=== PATIENT | female | born 1965 | race Caucasian/White ===

== ENCOUNTER 2016-12-11 18:51 | Emergency (ER) | payer OTHER ==
[~2016-12-11] VITALS: Ht 160 cm; Wt 68.6 kg
[~2016-12-11 18:51] MED LIST: AMBIEN10 MG PO; AMBIEN5 M1 PO; AMBIEN5 MG PO; AMITRIPTYLINE H10 MG PO; AMLODIPINE BESYL5 MG PO; ASCORBIC ACID500 M3 PO; ATENOLOL50 MG PO; BACTRIM,SEPT1 TABLET PO; BUPROPION HCL75 MG PO; BUSPAR10 MG PO; BUTALB-APAP-CA1 EACH PO; CHANTIX0.5 MG PO; CHANTIX1 EACH PO; CLARITIN,ALAVAR10 MG PO; CLARITIN10 MG PO; COLACE100 MG PO; CYANOCOBALAM1000 MCG PO; CYMBALTA20 MG PO; CYMBALTA30 MG PO; Colace PO; DIAZEPAM2 MG PO; DIAZEPAM5 MG PO; DICYCLOMINE HCL10 MG PO; DOXEPIN HCL10 MG PO; DOXYCYCLINE HY100 M3 PO; ELAVIL10 MG PO; ENDOCET 5-3251 EACH PO; ESCITALOPRAM OX20 MG PO; FERROUS SULFAT325 MG PO; FLEXERIL10 MG PO; FLEXERIL5 MG PO; FLOMAX0.4 MG PO; FLONASE16 G1 BOTH NARES; FLONASE16 GM NS; FLORANEX GRANU1 EACH PO; FLUCONAZOLE100 MG PO; FLUTICASONE PRO16 GM BOTH NARES; GABAPENTIN300 MG PO; GABAPENTIN400 MG PO; HYDROCHLOROTHIA25 MG PO; IRON325 MG PO; KADIAN30 MG PO; LASIX20 MG PO; LEVAQUIN500 MG PO; LEVAQUIN750 MG PO; LIDODERM 5% P1 PATCH TD; LISINOPRIL20 MG PO; LISINOPRIL40 MG PO; LORTAB 5-325 M1 EACH PO; LYRICA100 MG PO; MELOXICAM7.5 MG PO; METHADONE10 MG PO; METHOCARBAMOL750 MG PO; METOPROLOL TART25 MG PO; MOBIC15 MG PO; MORPHINE SULFAT15 M1; MORPHINE SULFAT15 M1 PO; MORPHINE SULFAT30 M2 PO; NASACORT10.8 ML BOTH NARES; NEURONTIN300 MG PO; NORCO 5/3251 TABLET PO; OMEPRAZOLE20 M2 PO; OMEPRAZOLE20 MG PO; OXAYDO5 MG PO; OXYCODONE HCL10 MG PO; OXYCODONE HCL5 MG PO; PANTOPRAZOLE SO40 MG PO; PERCOCET 10/1 TABLET PO; PERCOCET 7.5-31 EACH PO; PHENERGAN-CODE120 ML PO; PLAVIX75 MG PO; PRAVACHOL20 MG PO; PRAVASTATIN SOD20 MG PO; PREDNISONE10 MG PO; PREDNISONE20 MG PO; PROAIR HFA8.5 GM IH; PROMETHAZINE HC25 M1 PO; PROPRANOLOL HC120 MG PO; PROVENTIL HFA6.7 GM IH; RANITIDINE HCL300 MG PO; SANTYL30 GM TP; SEROQUEL50 MG PO; TIZANIDINE HCL4 MG PO; TORADOL10 MG PO; TRAZODONE HCL50 MG PO; ULTRAM50 MG PO; VENTOLIN HFA18 GM IH; WELLBUTRIN75 MG PO; XANAX0.5 MG PO; XANAX1 MG PO; ZESTRIL,PRINIVI20 MG PO; ZESTRIL,PRINIVI40 MG PO; ZITHROMAX Z-PA250 MG PO; ZOFRAN4 MG PO; ZOLPIDEM TARTRA10 MG PO; ZYRTEC10 M2 PO
[2016-12-11 19:34] LABS: HEMATOCRIT 35.7 % (36.0-46.0); MCH 27.1 PG (29.0-34.0); MCHC 31.1 G/DL (30.0-36.0); MCV 87.1 FL (83-99); MEAN PLAT.VOLUME 12.2 uM^3 (9.5-12.4); PLATELET COUNT 225 K/uL (156-360); RBC DIS.WIDTH-CV 13.6 % (11.8-14.6); RBC DIS.WIDTH-SD 43.5 % (39-53); WHITE BLOOD COUNT 7.4 K/uL (4.1-10.2)
[2016-12-11 19:44] LABS: CHLORIDE 105 mEq/L (99-109); POTASSIUM 3.9 mEq/L (3.7-5.4); SODIUM 142 mEq/L (136-147)
[2016-12-11 19:46] LABS: GLUCOSE 119 mg/dL (70-99)
[2016-12-11 19:47] LABS: ANION GAP 11 MEQ/L (2-14)
[2016-12-11 19:50] LABS: GFR ESTIMATE (CALCULATED) > 59 mL/min/
[2016-12-11 19:51] LABS: UREA NITROGEN (BUN) 13 mg/dL (9-23)
[2016-12-11 21:07] LABS: ADD MIUA? YES; BILIRUBIN MODERATE; BLOOD NEGATIVE; COLOR AMBER ((YELLOW)); GLUCOSE (STRIP) NEGATIVE; KETONES NEGATIVE; LEUKOCYTES TRACE; NITRITE NEGATIVE; PROTEIN (STRIP) 30; SPECIFIC GRAVITY 1.029 (1.000-1.030)
[2016-12-11 21:39] LABS: BACTERIA NONE SEEN /HPF; EPITHELIAL CELLS 2+ /HPF; HYALINE CASTS 0-5 /LPF; MUCUS 1+ /LPF; RED BLOOD CELLS 0-5 /HPF (0-5); WHITE BLOOD CELLS 20-30 /HPF (0-5)
[2016-12-11 21:48] LABS: ICTOTEST NEGATIVE
[2016-12-11 21:51] LABS: TOTAL BILIRUBIN 0.4 mg/dL (0.0-1.0)
[2016-12-11 21:52] LABS: ALKALINE PHOSPHATASE 52 IU/L (3-129)
[2016-12-11 21:54] LABS: DIRECT BILIRUBIN 0.1 mg/dL (0.0-0.3)
[2016-12-11] MEDS ORDERED: AUGMENTIN875 MG PO (22:47)
[2016-12-11 22:55] VITALS: BP 132/64
== END 2016-12-11 23:05 | disposition home or self-care (01) ==
LOC: EME 18:51
PROVIDERS: Physician Assistant
DX: J18.9 Pneumonia, unspecified organism (principal); J98.01 Acute bronchospasm; R09.02 Hypoxemia; F17.200 Nicotine dependence, unspecified, uncomplicated; Z88.6 Allergy status to analgesic agent; Z88.8 Allergy status to other drugs, medicaments and biological substances; J45.909 Unspecified asthma, uncomplicated; J44.9 Chronic obstructive pulmonary disease, unspecified; E78.5 Hyperlipidemia, unspecified; I10 Essential (primary) hypertension; Z87.442 Personal history of urinary calculi; K21.9 Gastro-esophageal reflux disease without esophagitis; Z87.01 Personal history of pneumonia (recurrent)
CPT/HCPCS: 71020; 80048; 80076; 81003; 85027; 93005; 94640; 99281; 99285; J7030

== ENCOUNTER 2017-02-13 20:14 | Inpatient (IN) | payer OTHER ==
[~2017-02-13] VITALS: Ht 160 cm; Wt 70.8 kg
[~2017-02-13 20:14] MED LIST changes: +AUGMENTIN875 MG PO
[2017-02-13 20:49] LABS: HEMATOCRIT 57.7 % (36.0-46.0); MCH 27.8 PG (29.0-34.0); MCHC 32.8 G/DL (30.0-36.0); MCV 84.9 FL (83-99); RBC DIS.WIDTH-SD 45.2 % (39-53); WHITE BLOOD COUNT 24.6 K/uL (4.1-10.2)
[2017-02-13 21:42] LABS: TROP-I INTERPRETATION NEGATIVE; TROPONIN-I 0.18 ng/mL (0.0-0.30)
[2017-02-13 21:54] LABS: CHLORIDE 103 mEq/L (99-109); SODIUM 140 mEq/L (136-147)
[2017-02-13 21:56] LABS: GLUCOSE 274 mg/dL (70-99)
[2017-02-13 21:57] LABS: INTER. NORMALIZED RATIO 1.1; PROTHROMBIN TIME 11.3 (9.2-11.2); PTT 23.7 (25-32)
[2017-02-13 21:57] LABS: ANION GAP 21 MEQ/L (2-14)
[2017-02-13 21:58] LABS: HEMATOLOGY COMMENT 1 SN; MEAN PLAT.VOLUME 12.2 uM^3 (9.5-12.4); PLAT.SUFFICIENCY ADEQUATE; PLATELET COUNT 194 K/uL (156-360)
[2017-02-13 21:58] LABS: TOTAL BILIRUBIN 0.5 mg/dL (0.0-1.0)
[2017-02-13 21:59] LABS: SERUM ETHYL ALCOHOL < 10 mg/dL
[2017-02-13 22:00] LABS: GFR ESTIMATE (CALCULATED) 55 mL/min/
[2017-02-13 22:01] LABS: ALKALINE PHOSPHATASE 86 IU/L (3-129)
[2017-02-13 22:02] LABS: UREA NITROGEN (BUN) 19 mg/dL (9-23)
[2017-02-13 22:03] LABS: ADD MIUA? YES; BILIRUBIN NEGATIVE; BLOOD SMALL; COLOR AMBER ((YELLOW)); GLUCOSE (STRIP) >=500; KETONES NEGATIVE; LEUKOCYTES NEGATIVE; NITRITE NEGATIVE; PROTEIN (STRIP) >=500; SPECIFIC GRAVITY 1.038 (1.000-1.030); UROBILINOGEN 0.2 MG/DL (0.2-1.0)
[2017-02-13 22:03] LABS: SALICYLATE < 5.0 MG/DL (15-30)
[2017-02-13 22:04] LABS: CREATINE KINASE 162 IU/L (1-294)
[2017-02-13 22:23] LABS: ADD MEDTOX COMMENT Y; AMPHETAMINE NEGATIVE (500 ng/mL); BARBITURATES NEGATIVE (200 ng/mL); BENZODIAZEPINES PRESUMPTIVE POSITIVE (150 ng/mL); COCAINE NEGATIVE (150 ng/mL); INTERNAL CONTROLS VALID? YES; METHADONE NEGATIVE (200 ng/mL); METHAMPHETAMINE NEGATIVE (500 ng/mL); OPIATES (MORPHINE) PRESUMPTIVE POSITIVE (100 ng/mL); OXYCODONE NEGATIVE (100 ng/mL); PHENCYCLIDINE NEGATIVE (25 ng/mL); PROPOXYPHENE NEGATIVE (300 ng/mL); THC CANNABINOIDS NEGATIVE (50 ng/mL); TRICYCLIC ANTIDEPRESSANTS NEGATIVE (300 ng/mL)
[2017-02-13 22:37] LABS: RED BLOOD CELLS 0-5 /HPF (0-5)
[2017-02-13 22:38] LABS: AMORPHOUS URATES CRYSTALS 3+; BACTERIA 1+ /HPF; EPITHELIAL CELLS NONE SEEN /HPF; MUCUS NONE SEEN /LPF; UCUL ADDED? NO
[2017-02-13 22:59] LABS: BENZODIAZEPINES, URINE SCREEN POSITIVE (200 ng/mL)
[2017-02-14] VITALS (12 sets, daily range): BP systolic 140–184; BP diastolic 84–108
[2017-02-14 04:12] LABS: CREATINE KINASE 120 IU/L (1-294); TOTAL CK 120 IU/L (1-294)
[2017-02-14 09:19] LABS: EOSINOPHIL (%) 0 % (0-5); HEMATOCRIT 53.6 % (36.0-46.0); IMMATURE GRANULOCYTE (%) 0.9 % (0.0-0.7); IMMATURE GRANULOCYTE COUNT 0.3 K/uL; INSTRUMENT ABS NEUTROPHIL CT 23.1 K/uL; MCH 27.7 PG (29.0-34.0); MCV 83.8 FL (83-99); MEAN PLAT.VOLUME 12.6 uM^3 (9.5-12.4); MONOCYTE (%) 6.3 % (3-12); MONOCYTE COUNT 1.7 K/uL (0-0.8); NEUTROPHIL (%) 85.5 % (45-76); NEUTROPHIL COUNT 23.1 K/uL (1.8-6.4); RBC DIS.WIDTH-SD 45.2 % (39-53); WHITE BLOOD COUNT 27.1 K/uL (4.1-10.2)
[2017-02-14 09:23] LABS: PLATELET COUNT 281 K/uL (156-360)
[2017-02-14 09:36] LABS: CHLORIDE 110 mEq/L (99-109); SODIUM 140 mEq/L (136-147)
[2017-02-14 09:38] LABS: GLUCOSE 184 mg/dL (70-99)
[2017-02-14 09:39] LABS: ANION GAP 16 MEQ/L (2-14)
[2017-02-14 09:41] LABS: GFR ESTIMATE (CALCULATED) > 59 mL/min/
[2017-02-14 09:42] LABS: UREA NITROGEN (BUN) 26 mg/dL (9-23)
[2017-02-14 10:14] LABS: TROP-I INTERPRETATION POSITIVE; TROPONIN-I 0.69 ng/mL (0.0-0.30)
[2017-02-14 17:27] LABS: TROP-I INTERPRETATION POSITIVE; TROPONIN-I 0.92 ng/mL (0.0-0.30)
[2017-02-14 22:29] LABS: TROP-I INTERPRETATION POSITIVE; TROPONIN-I 0.81 ng/mL (0.0-0.30)
[2017-02-15 02:06] VITALS: BP 138/88
[2017-02-15 03:00] VITALS: BP 151/84
[2017-02-15 08:43] VITALS: BP 135/77
[2017-02-15 09:30] LABS: ANION GAP 10 MEQ/L (2-14); CHLORIDE 101 MEQ/L (99-109); SAMPLE HEMOLYSIS CHECK 0; SAMPLE ICTERIC CHECK 0; SAMPLE LIPEMIA CHECK 0; SODIUM 136 MEQ/L (136-147)
[2017-02-15 09:33] LABS: POTASSIUM 2.8 MEQ/L (3.7-5.4)
[2017-02-15 09:35] LABS: GFR ESTIMATE (CALCULATED) > 59 mL/min/; UREA NITROGEN (BUN) 18 mg/dL (9-23)
[2017-02-15 09:37] LABS: GLUCOSE 117 mg/dL (70-99)
[2017-02-15 09:57] LABS: BASOPHIL COUNT 0.1 K/uL (0-0.1); EOSINOPHIL (%) 0 % (0-5); HEMATOCRIT 41.6 % (36.0-46.0); IMMATURE GRANULOCYTE (%) 0.6 % (0.0-0.7); IMMATURE GRANULOCYTE COUNT 0.1 K/uL; INSTRUMENT ABS NEUTROPHIL CT 18.6 K/uL; MCH 28.5 PG (29.0-34.0); MCHC 34.1 G/DL (30.0-36.0); MCV 83.5 FL (83-99); MONOCYTE (%) 6.5 % (3-12); MONOCYTE COUNT 1.5 K/uL (0-0.8); NEUTROPHIL (%) 79.6 % (45-76); NEUTROPHIL COUNT 18.6 K/uL (1.8-6.4); RBC DIS.WIDTH-CV 15.6 % (11.8-14.6); RBC DIS.WIDTH-SD 46.9 % (39-53); RED BLOOD COUNT 4.98 M/uL (3.80-5.20); WHITE BLOOD COUNT 23.3 K/uL (4.1-10.2)
[2017-02-15 10:46] LABS: MEAN PLAT.VOLUME 12.7 uM^3 (9.5-12.4); PLAT.SUFFICIENCY ADEQUATE
[2017-02-15 10:49] LABS: PLATELET COUNT 184 K/uL (156-360)
[2017-02-15 11:50] VITALS: BP 138/63
[2017-02-15 15:12] VITALS: BP 130/73
[2017-02-15 20:30] VITALS: BP 157/75
[2017-02-15 20:39] LABS: C DIFF TOXIN NEGATIVE (NEGATIVE)
[2017-02-15 20:48] LABS: PROBE CHECK PASS; SPECIMEN PROCESSING CONTROL PASS
[2017-02-16] VITALS (7 sets, daily range): BP systolic 137–172; BP diastolic 62–82
[2017-02-16 06:34] LABS: HEMATOCRIT 34.2 % (36.0-46.0); MCH 28.6 PG (29.0-34.0); MCHC 33.9 G/DL (30.0-36.0); MCV 84.4 FL (83-99); MEAN PLAT.VOLUME 12.7 uM^3 (9.5-12.4); PLATELET COUNT 141 K/uL (156-360); RBC DIS.WIDTH-CV 15.4 % (11.8-14.6); RBC DIS.WIDTH-SD 47.1 % (39-53); RED BLOOD COUNT 4.05 M/uL (3.80-5.20)
[2017-02-16 06:35] LABS: EOSINOPHIL (%) 0.1 % (0-5); IMMATURE GRANULOCYTE (%) 0.5 % (0.0-0.7); IMMATURE GRANULOCYTE COUNT 0.1 K/uL; INSTRUMENT ABS NEUTROPHIL CT 9.3 K/uL; LYMPHOCYTE COUNT 2.7 K/uL (1.0-2.8); MONOCYTE (%) 7.1 % (3-12); MONOCYTE COUNT 0.9 K/uL (0-0.8); NEUTROPHIL (%) 71.1 % (45-76); NEUTROPHIL COUNT 9.3 K/uL (1.8-6.4)
[2017-02-16 06:36] LABS: WHITE BLOOD COUNT 13.1 K/uL (4.1-10.2)
[2017-02-16 06:45] LABS: ANION GAP 9 MEQ/L (2-14); CHLORIDE 106 MEQ/L (99-109); GFR ESTIMATE (CALCULATED) > 59 mL/min/; GLUCOSE 93 mg/dL (70-99); HDL CHOLESTEROL 37 MG/DL (Desirable>=50); LDL CHOLESTEROL 104 mg/dL (Desirable<100); MAGNESIUM 1.9 mg/dl (1.3-2.7); NON-HDL CHOLESTEROL 150 mg/dL (Desirable<160); POTASSIUM 2.9 MEQ/L (3.7-5.4); SAMPLE HEMOLYSIS CHECK 0; SAMPLE ICTERIC CHECK 0; SAMPLE LIPEMIA CHECK 0; SODIUM 139 MEQ/L (136-147); TOTAL CHOLESTEROL 187 mg/dL (Desirable<200); TRIGLYCERIDES 231 MG/DL (Normal: <150); UREA NITROGEN (BUN) 10 mg/dL (9-23)
[2017-02-16 07:57] LABS: Estimated Average Glucose 111 mg/dL (70-123); HEMOGLOBIN A1c (GLYCOHEMOGLOB) 5.5 % HGB (Below 5.7)
[2017-02-17 04:26] VITALS: BP 180/81
[2017-02-17 07:35] LABS: ALKALINE PHOSPHATASE 37 IU/L (3-129); ANION GAP 10 MEQ/L (2-14); CHLORIDE 105 MEQ/L (99-109); GFR ESTIMATE (CALCULATED) > 59 mL/min/; GLUCOSE 94 mg/dL (70-99); SAMPLE HEMOLYSIS CHECK 0; SAMPLE ICTERIC CHECK 0; SAMPLE LIPEMIA CHECK 0; SODIUM 139 MEQ/L (136-147); TOTAL BILIRUBIN 0.7 MG/DL (0.0-1.0); UREA NITROGEN (BUN) 9 mg/dL (9-23)
[2017-02-17 07:46] LABS: EOSINOPHIL (%) 1.1 % (0-5); EOSINOPHIL COUNT 0.1 K/uL (0-0.3); HEMATOCRIT 36.3 % (36.0-46.0); IMMATURE GRANULOCYTE (%) 0.6 % (0.0-0.7); IMMATURE GRANULOCYTE COUNT 0.1 K/uL; INSTRUMENT ABS NEUTROPHIL CT 5.1 K/uL; LYMPHOCYTE COUNT 2.1 K/uL (1.0-2.8); MCH 27.6 PG (29.0-34.0); MCHC 32.2 G/DL (30.0-36.0); MCV 85.6 FL (83-99); MEAN PLAT.VOLUME 12.6 uM^3 (9.5-12.4); MONOCYTE (%) 8.8 % (3-12); MONOCYTE COUNT 0.7 K/uL (0-0.8); NEUTROPHIL (%) 63.2 % (45-76); NEUTROPHIL COUNT 5.1 K/uL (1.8-6.4); PLATELET COUNT 120 K/uL (156-360); RBC DIS.WIDTH-CV 15.1 % (11.8-14.6); RBC DIS.WIDTH-SD 47.5 % (39-53); RED BLOOD COUNT 4.24 M/uL (3.80-5.20)
[2017-02-17 07:51] LABS: WHITE BLOOD COUNT 8.1 K/uL (4.1-10.2)
[2017-02-17 08:05] VITALS: BP 155/71
[2017-02-17] MEDS ORDERED: LOPRESSOR50 MG PO (10:49)
[2017-02-17] MEDS ORDERED: K-DUR20 MEQ PO (10:49)
[2017-02-17] MEDS ORDERED: NIFEDIPINE ER30 MG PO (10:49)
[2017-02-17] MEDS ORDERED: ZESTRIL2.5 MG PO (10:49)
[2017-02-17] MEDS ORDERED: ASPIR-LOW81 MG PO (10:49)
[2017-02-17] MEDS ORDERED: PRAVASTATIN SOD40 MG PO (10:51)
[2017-02-17] MEDS ORDERED: GABAPENTIN400 MG PO (12:29)
[2017-02-17] MEDS ORDERED: MORPHINE SULFAT15 M1 PO (12:29)
[2017-02-17] MEDS ORDERED: LISINOPRIL40 MG PO (12:30)
[2017-02-17] MEDS ORDERED: CLARITIN10 M3 PO (12:30)
[2017-02-17] MEDS ORDERED: ZANTAC300 MG PO (12:30)
[2017-02-17] MEDS ORDERED: ATENOLOL50 MG PO (12:30)
[2017-02-17] MEDS ORDERED: OXYCODONE HCL10 MG PO (12:30)
[2017-02-17] MEDS ORDERED: IRON325 M1 PO (12:31)
[2017-02-17] MEDS ORDERED: NASACORT10.8 ML BOTH NARES (12:31)
[2017-02-17] MEDS ORDERED: TRAZODONE HCL50 MG PO (12:32)
[2017-02-17] MEDS ORDERED: ROPINIROLE HCL0.5 MG PO (12:32)
[2017-02-17] MEDS ORDERED: CHANTIX1 MG PO (12:32)
[2017-02-17 15:13] VITALS: BP 168/76
== END 2017-02-17 16:15 | disposition home health service (06) | DRG 871 ==
LOC: EME → EDBD 20:14 → EME 20:14 → EDOF 21:13 → 5SOUTH 21:13 → 4EAST 21:13 → 5SOUTH 02-16 11:35
PROVIDERS: Emergency Medicine; Hospitalist; Internal Medicine; Internal Medicine Nephrology
PROC: 05H633Z Insertion of Infusion Device into Left Subclavian Vein, Percutaneous Approach (ICD-10-PCS; principal; 2017-02-13)
DX: A41.9 Sepsis, unspecified organism (principal); I67.83 Posterior reversible encephalopathy syndrome; I63.9 Cerebral infarction, unspecified; G93.40 Encephalopathy, unspecified; E87.2 Acidosis; F11.90 Opioid use, unspecified, uncomplicated; I10 Essential (primary) hypertension; E87.6 Hypokalemia; G89.4 Chronic pain syndrome; F31.9 Bipolar disorder, unspecified; E86.0 Dehydration; G93.0 Cerebral cysts; F19.10 Other psychoactive substance abuse, uncomplicated; K21.9 Gastro-esophageal reflux disease without esophagitis; M47.9 Spondylosis, unspecified; F17.210 Nicotine dependence, cigarettes, uncomplicated; Z98.1 Arthrodesis status
CPT/HCPCS: 70450; 70551; 71010; 72141; 72146; 80048; 80053; 80061; 80202; 81003; 82550; 82550 91; 82553; 83036; 83605; 83735; 84484; 84999; 85025; 85027; 85610; 85730; 86900; 86901; 87040; 87086; 87493; 92610 GN; 93005; 93306; 93880; 95819; 97530 GO; 99281; 99285; G0480; J0360; J1650; J2060; J2543; J3370; J3480; J7030; J7050; S0028

== ENCOUNTER 2017-03-16 09:22 | Emergency (ER) | payer OTHER ==
[~2017-03-16] VITALS: Ht 160 cm; Wt 67.7 kg
[~2017-03-16 09:22] MED LIST changes: +ASPIR-LOW81 MG PO; +CHANTIX1 MG PO; +CLARITIN10 M3 PO; +IRON325 M1 PO; +K-DUR20 MEQ PO; +LOPRESSOR50 MG PO; +NIFEDIPINE ER30 MG PO; +PRAVASTATIN SOD40 MG PO; +ROPINIROLE HCL0.5 MG PO; +ZANTAC300 MG PO; +ZESTRIL2.5 MG PO
[2017-03-16 12:57] LABS: BASOPHIL COUNT 0.1 K/uL (0-0.1); EOSINOPHIL (%) 1.5 % (0-5); EOSINOPHIL COUNT 0.1 K/uL (0-0.3); HEMATOCRIT 42.6 % (36.0-46.0); IMMATURE GRANULOCYTE (%) 0.4 % (0.0-0.7); INSTRUMENT ABS NEUTROPHIL CT 4.4 K/uL; LYMPHOCYTE COUNT 2.9 K/uL (1.0-2.8); MCHC 33.1 G/DL (30.0-36.0); MCV 84.5 FL (83-99); MEAN PLAT.VOLUME 12.7 uM^3 (9.5-12.4); MONOCYTE (%) 6.9 % (3-12); MONOCYTE COUNT 0.6 K/uL (0-0.8); NEUTROPHIL (%) 54.2 % (45-76); NEUTROPHIL COUNT 4.4 K/uL (1.8-6.4); PLATELET COUNT 190 K/uL (156-360); RBC DIS.WIDTH-CV 14.2 % (11.8-14.6); RED BLOOD COUNT 5.04 M/uL (3.80-5.20); WHITE BLOOD COUNT 8.1 K/uL (4.1-10.2)
[2017-03-16 13:01] LABS: CHLORIDE 106 mEq/L (99-109); POTASSIUM 4.4 mEq/L (3.7-5.4); SODIUM 141 mEq/L (136-147)
[2017-03-16 13:03] LABS: GLUCOSE 83 mg/dL (70-99)
[2017-03-16 13:05] LABS: ANION GAP 14 MEQ/L (2-14)
[2017-03-16 13:07] LABS: GFR ESTIMATE (CALCULATED) > 59 mL/min/
[2017-03-16 13:08] LABS: UREA NITROGEN (BUN) 10 mg/dL (9-23)
[2017-03-16 17:06] VITALS: BP 171/98
== END 2017-03-16 17:09 | disposition home or self-care (01) ==
LOC: EME 09:22
PROVIDERS: Emergency Medicine
DX: I10 Essential (primary) hypertension (principal); R51 Headache; Z79.891 Long term (current) use of opiate analgesic; Z90.710 Acquired absence of both cervix and uterus; F17.200 Nicotine dependence, unspecified, uncomplicated
CPT/HCPCS: 70450; 80048; 85025; 99281; 99284; J1885; J2765; J3010; J7030

== ENCOUNTER 2017-04-22 15:51 | Emergency (ER) | payer OTHER ==
[~2017-04-22] VITALS: Ht 160 cm; Wt 66.5 kg
[2017-04-22] MEDS ORDERED: ZANTAC300 MG PO (18:13)
[2017-04-22 20:52] VITALS: BP 147/69
== END 2017-04-22 20:56 | disposition home or self-care (01) ==
LOC: EME 15:51
DX: G43.909 Migraine, unspecified, not intractable, without status migrainosus (principal); M79.7 Fibromyalgia; J44.9 Chronic obstructive pulmonary disease, unspecified; E78.5 Hyperlipidemia, unspecified; K21.9 Gastro-esophageal reflux disease without esophagitis; F31.9 Bipolar disorder, unspecified; F17.200 Nicotine dependence, unspecified, uncomplicated
CPT/HCPCS: 99281; 99285; J1885; J2765; J3010; J7030

== ENCOUNTER 2017-06-10 18:48 | Inpatient (IN) | payer OTHER ==
[~2017-06-10] VITALS: Ht 160 cm; Wt 72.8 kg
[~2017-06-10 18:48] MED LIST changes: -CLARITIN10 M3 PO
[2017-06-10 20:25] LABS: HEMATOCRIT 35.9 % (36.0-46.0); MCH 28.5 PG (29.0-34.0); MCHC 32.6 G/DL (30.0-36.0); MCV 87.6 FL (83-99); MEAN PLAT.VOLUME 12.2 uM^3 (9.5-12.4); PLATELET COUNT 208 K/uL (156-360); RBC DIS.WIDTH-CV 13.3 % (11.8-14.6); RBC DIS.WIDTH-SD 43.2 % (39-53); WHITE BLOOD COUNT 12.8 K/uL (4.1-10.2)
[2017-06-10 20:41] LABS: CHLORIDE 105 mEq/L (99-109); POTASSIUM 4.1 mEq/L (3.7-5.4); SODIUM 142 mEq/L (136-147)
[2017-06-10 20:43] LABS: GLUCOSE 145 mg/dL (70-99)
[2017-06-10 20:45] LABS: ANION GAP 14 MEQ/L (2-14); TOTAL BILIRUBIN 1.2 mg/dL (0.0-1.0)
[2017-06-10 20:47] LABS: ALKALINE PHOSPHATASE 103 IU/L (3-129); GFR ESTIMATE (CALCULATED) 55 mL/min/
[2017-06-10 20:48] LABS: UREA NITROGEN (BUN) 46 mg/dL (9-23)
[2017-06-10 20:58] LABS: QUANTITATIVE HCG < 4.0 MIU/ML
[2017-06-10 21:32] LABS: DIRECT BILIRUBIN 0.7 mg/dL (0.0-0.3)
[2017-06-10 22:12] LABS: ADD MIUA? NO; BILIRUBIN SMALL; BLOOD NEGATIVE; COLOR YELLOW ((YELLOW)); GLUCOSE (STRIP) NEGATIVE; KETONES 5; LEUKOCYTES NEGATIVE; NITRITE NEGATIVE; PROTEIN (STRIP) 30; SPECIFIC GRAVITY 1.018 (1.000-1.030); UCUL ADDED? NO
[2017-06-10 22:21] LABS: AMPHETAMINE NEGATIVE (500 ng/mL); BARBITURATES NEGATIVE (200 ng/mL); BENZODIAZEPINES PRESUMPTIVE POSITIVE (150 ng/mL); COCAINE NEGATIVE (150 ng/mL); INTERNAL CONTROLS VALID? YES; METHADONE NEGATIVE (200 ng/mL); METHAMPHETAMINE NEGATIVE (500 ng/mL); OPIATES (MORPHINE) PRESUMPTIVE POSITIVE (100 ng/mL); OXYCODONE PRESUMPTIVE POSITIVE (100 ng/mL); PHENCYCLIDINE NEGATIVE (25 ng/mL); PROPOXYPHENE NEGATIVE (300 ng/mL); THC CANNABINOIDS NEGATIVE (50 ng/mL); TRICYCLIC ANTIDEPRESSANTS PRESUMPTIVE POSITIVE (300 ng/mL)
[2017-06-10 22:22] LABS: ADD MEDTOX COMMENT Y
[2017-06-10 22:23] LABS: ABS NEUTROPHIL COUNT 12.1; ANISOCYTOSIS 1+; BAND NEUTROPHILS 17.5 % (0-8.0); EOSINOPHIL ABS CT 0; INSTRUMENT ABS NEUTROPHIL CT 11.8 K/uL; LYMPHOCYTES 3.5 % (15.0-45.0); SEG.NEUTROPHILS 77.2 % (46.0-76.0)
[2017-06-10 22:53] LABS: BENZODIAZEPINES, URINE SCREEN POSITIVE (200 ng/mL)
[2017-06-10 23:03] LABS: LIPASE < 3 U/L (1.0-51.0)
[2017-06-11] MEDS ORDERED: LISINOPRIL20 MG PO (00:53)
[2017-06-11] MEDS ORDERED: PRAVACHOL20 MG PO (00:53)
[2017-06-11] MEDS ORDERED: APRESOLINE25 MG PO (00:56)
[2017-06-11] MEDS ORDERED: HYOSCYAMINE0.125 M1 SL (00:56)
[2017-06-11] MEDS ORDERED: AMITRIPTYLINE H10 MG PO (00:57)
[2017-06-11] MEDS ORDERED: OMEPRAZOLE20 MG PO (00:57)
[2017-06-11] MEDS ORDERED: DIAZEPAM2 MG PO (00:57)
[2017-06-11 04:41] VITALS: BP 187/108
[2017-06-11 07:12] LABS: ADD MIUA? NO; BILIRUBIN NEGATIVE; BLOOD NEGATIVE; COLOR YELLOW ((YELLOW)); GLUCOSE (STRIP) NEGATIVE; KETONES NEGATIVE; LEUKOCYTES NEGATIVE; NITRITE NEGATIVE; PROTEIN (STRIP) NEGATIVE; SPECIFIC GRAVITY 1.018 (1.000-1.030); UCUL ADDED? NO
[2017-06-11 07:30] VITALS: BP 161/98
[2017-06-11 11:33] VITALS: BP 178/113
[2017-06-11 15:09] VITALS: BP 140/67
[2017-06-11 19:30] VITALS: BP 131/74
[2017-06-12] VITALS (8 sets, daily range): BP systolic 119–189; BP diastolic 60–88
[2017-06-12 07:07] LABS: ANION GAP 10 MEQ/L (2-14); CHLORIDE 108 MEQ/L (99-109); GFR ESTIMATE (CALCULATED) > 59 mL/min/; POTASSIUM 4.1 MEQ/L (3.7-5.4); SAMPLE HEMOLYSIS CHECK 0; SAMPLE ICTERIC CHECK 0; SAMPLE LIPEMIA CHECK 0; SODIUM 141 MEQ/L (136-147); UREA NITROGEN (BUN) 23 mg/dL (9-23)
[2017-06-12 07:14] LABS: GLUCOSE 90 mg/dL (70-99)
[2017-06-12 08:22] LABS: EOSINOPHIL (%) 0.2 % (0-5); HEMATOCRIT 32.4 % (36.0-46.0); IMMATURE GRANULOCYTE (%) 1.3 % (0.0-0.7); IMMATURE GRANULOCYTE COUNT 0.2 K/uL; LYMPHOCYTE COUNT 1.3 K/uL (1.0-2.8); MCHC 31.2 G/DL (30.0-36.0); MEAN PLAT.VOLUME 11.6 uM^3 (9.5-12.4); MONOCYTE (%) 9.6 % (3-12); MONOCYTE COUNT 1.4 K/uL (0-0.8); NEUTROPHIL (%) 80.4 % (45-76); PLATELET COUNT 155 K/uL (156-360); RBC DIS.WIDTH-SD 47.7 % (39-53); RED BLOOD COUNT 3.48 M/uL (3.80-5.20)
[2017-06-12 08:23] LABS: MCV 93.1 FL (83-99)
[2017-06-12 16:55] LABS: INFLUENZA A VIRAL ANTIGEN NEGATIVE; INFLUENZA B VIRAL ANTIGEN NEGATIVE
[2017-06-13 03:32] VITALS: BP 146/83
[2017-06-13 07:45] VITALS: BP 163/80
[2017-06-13 09:39] LABS: HEMATOCRIT 30.3 % (36.0-46.0); MCH 29.6 PG (29.0-34.0); MCHC 32.3 G/DL (30.0-36.0); MCV 91.5 FL (83-99); MEAN PLAT.VOLUME 11.4 uM^3 (9.5-12.4); PLATELET COUNT 134 K/uL (156-360); RBC DIS.WIDTH-CV 13.9 % (11.8-14.6); RBC DIS.WIDTH-SD 47.1 % (39-53); RED BLOOD COUNT 3.31 M/uL (3.80-5.20); WHITE BLOOD COUNT 13.5 K/uL (4.1-10.2)
[2017-06-13 10:15] LABS: INTERNAL CONTROL VALID? YES
[2017-06-13 10:24] LABS: ANION GAP 9 MEQ/L (2-14); CHLORIDE 106 MEQ/L (99-109); GFR ESTIMATE (CALCULATED) > 59 mL/min/; GLUCOSE 108 mg/dL (70-99); SAMPLE HEMOLYSIS CHECK 0; SAMPLE ICTERIC CHECK 0; SAMPLE LIPEMIA CHECK 0; SODIUM 138 MEQ/L (136-147); UREA NITROGEN (BUN) 10 mg/dL (9-23)
[2017-06-13 10:34] LABS: POTASSIUM 3.2 MEQ/L (3.7-5.4)
[2017-06-13 12:10] VITALS: BP 115/56
[2017-06-13 16:45] VITALS: BP 126/64
[2017-06-13 19:57] VITALS: BP 113/59
[2017-06-14 00:13] VITALS: BP 136/72
[2017-06-14 03:32] VITALS: BP 121/65
[2017-06-14 04:17] LABS: CHLORIDE 103 mEq/L (99-109); HEMATOCRIT 29.4 % (36.0-46.0); MCH 28.4 PG (29.0-34.0); RBC DIS.WIDTH-CV 12.8 % (11.8-14.6); RBC DIS.WIDTH-SD 40.5 % (39-53); RED BLOOD COUNT 3.42 M/uL (3.80-5.20); SODIUM 138 mEq/L (136-147); WHITE BLOOD COUNT 6.6 K/uL (4.1-10.2)
[2017-06-14 04:20] LABS: ANION GAP 8 MEQ/L (2-14)
[2017-06-14 04:22] LABS: GFR ESTIMATE (CALCULATED) > 59 mL/min/
[2017-06-14 04:23] LABS: UREA NITROGEN (BUN) 6 mg/dL (9-23)
[2017-06-14 04:24] LABS: GLUCOSE 224 mg/dL (70-99); POTASSIUM 2.5 mEq/L (3.7-5.4)
[2017-06-14 05:19] LABS: ABS NEUTROPHIL COUNT 5.4; ANISOCYTOSIS 1+; ATYPICAL LYMPHOCYTE 1.8 %; BASOPHILS 0.9 %; EOSINOPHIL ABS CT 0; LYMPHOCYTES 10.6 % (15.0-45.0); MACROCYTES 1+; METAMYELOCYTES 3.5 %; OVALOCYTES 1+; PLAT.SUFFICIENCY ADEQUATE; PLATELET CLUMPS PRESENT - PLATELET COUNT APPEARS ADQ.; SEG.NEUTROPHILS 82.3 % (46.0-76.0)
[2017-06-14 07:16] LABS: METH RESISTANT S AUREUS PCR NEGATIVE (NEGATIVE); PROBE CHECK PASS; SPECIMEN PROCESSING CONTROL PASS
[2017-06-14 07:27] VITALS: BP 131/89
[2017-06-14 10:38] LABS: MAGNESIUM 1.6 mg/dL (1.3-2.7)
[2017-06-14 11:12] VITALS: BP 133/66
[2017-06-14 12:05] LABS: POC NON-PRINT COM 1 ND
[2017-06-14 13:30] VITALS: BP 144/75
[2017-06-14 20:47] VITALS: BP 149/22; BP 149/72
[2017-06-15] VITALS (7 sets, daily range): BP systolic 117–150; BP diastolic 57–75
[2017-06-15 06:44] LABS: HEMATOCRIT 30.9 % (36.0-46.0); MCH 27.9 PG (29.0-34.0); MCHC 32.4 G/DL (30.0-36.0); MCV 86.3 FL (83-99); MEAN PLAT.VOLUME 11.7 uM^3 (9.5-12.4); RBC DIS.WIDTH-CV 12.8 % (11.8-14.6); RBC DIS.WIDTH-SD 40.8 % (39-53); RED BLOOD COUNT 3.58 M/uL (3.80-5.20)
[2017-06-15 06:45] LABS: PLATELET COUNT 220 K/uL (156-360)
[2017-06-15 07:15] LABS: ANION GAP 9 MEQ/L (2-14); CHLORIDE 96 MEQ/L (99-109); GFR ESTIMATE (CALCULATED) > 59 mL/min/; POTASSIUM 2.6 MEQ/L (3.7-5.4); SAMPLE HEMOLYSIS CHECK 0; SAMPLE ICTERIC CHECK 0; SAMPLE LIPEMIA CHECK 0; SODIUM 139 MEQ/L (136-147); UREA NITROGEN (BUN) 9 mg/dL (9-23)
[2017-06-15 07:23] LABS: GLUCOSE 102 mg/dL (70-99)
[2017-06-16 04:01] VITALS: BP 161/70
[2017-06-16 08:17] VITALS: BP 141/67
[2017-06-16 10:48] LABS: MCH 29.6 PG (29.0-34.0); MCHC 33.8 G/DL (30.0-36.0); MCV 87.7 FL (83-99); MEAN PLAT.VOLUME 11.5 uM^3 (9.5-12.4); PLATELET COUNT 262 K/uL (156-360); RBC DIS.WIDTH-CV 13.1 % (11.8-14.6); RBC DIS.WIDTH-SD 42.1 % (39-53); RED BLOOD COUNT 3.65 M/uL (3.80-5.20)
[2017-06-16 11:40] LABS: ANION GAP 10 MEQ/L (2-14); CHLORIDE 96 MEQ/L (99-109); GFR ESTIMATE (CALCULATED) > 59 mL/min/; GLUCOSE 138 mg/dL (70-99); MAGNESIUM 1.9 mg/dl (1.3-2.7); POTASSIUM 2.8 MEQ/L (3.7-5.4); SAMPLE HEMOLYSIS CHECK 0; SAMPLE ICTERIC CHECK 0; SAMPLE LIPEMIA CHECK 0; SODIUM 134 MEQ/L (136-147); UREA NITROGEN (BUN) 11 mg/dL (9-23)
[2017-06-16 12:03] VITALS: BP 133/61
[2017-06-16 15:28] VITALS: BP 134/67
[2017-06-16 19:57] VITALS: BP 144/66
[2017-06-16 23:09] VITALS: BP 129/60
[2017-06-17 04:13] VITALS: BP 152/70
[2017-06-17 07:03] LABS: HEMATOCRIT 30.2 % (36.0-46.0); MCH 29.4 PG (29.0-34.0); MCHC 33.4 G/DL (30.0-36.0); MCV 87.8 FL (83-99); MEAN PLAT.VOLUME 11.4 uM^3 (9.5-12.4); PLATELET COUNT 241 K/uL (156-360); RBC DIS.WIDTH-CV 13.2 % (11.8-14.6); RBC DIS.WIDTH-SD 42.5 % (39-53); RED BLOOD COUNT 3.44 M/uL (3.80-5.20); WHITE BLOOD COUNT 11.9 K/uL (4.1-10.2)
[2017-06-17 07:36] LABS: ANION GAP 4 MEQ/L (2-14); CHLORIDE 103 MEQ/L (99-109); GFR ESTIMATE (CALCULATED) > 59 mL/min/; POTASSIUM 3.3 MEQ/L (3.7-5.4); SAMPLE HEMOLYSIS CHECK 0; SAMPLE ICTERIC CHECK 0; SAMPLE LIPEMIA CHECK 0; SODIUM 139 MEQ/L (136-147); UREA NITROGEN (BUN) 11 mg/dL (9-23)
[2017-06-17 07:39] LABS: GLUCOSE 88 mg/dL (70-99)
[2017-06-17 07:57] VITALS: BP 169/77
[2017-06-17 11:13] VITALS: BP 137/74
[2017-06-17] MEDS ORDERED: PREDNISONE10 M1 PO (15:58)
[2017-06-17] MEDS ORDERED: K-DUR20 MEQ PO (15:59)
[2017-06-17] MEDS ORDERED: ACIDOPHILUS LA1 EACH PO (15:59)
[2017-06-17] MEDS ORDERED: METRONIDAZOLE500 MG PO (15:59)
[2017-06-17] MEDS ORDERED: NIFEDIPINE20 MG PO (15:59)
[2017-06-17] MEDS ORDERED: AUGMENTIN875 MG PO (15:59)
[2017-06-17] MEDS ORDERED: NICOTINE PATCH1 EAC2 TD (15:59)
[2017-06-17] MEDS ORDERED: INCRUSE ELLI62.5 MCG IH (16:10)
[2017-06-17] MEDS ORDERED: SYMBICORT60 INHALA1 IH (16:10)
[2017-06-17 16:39] VITALS: BP 140/83
[2017-06-20 20:35] LABS: Neutrophil Cytoplasmic Aby Negative (Negative)
== END 2017-06-17 18:14 | disposition home or self-care (01) | DRG 871 ==
LOC: EME 18:48 → EDOF 06-11 02:50 → 3EAST 06-11 02:50 → ENRESERV 06-11 02:52 → 3EAST 06-11 04:27
PROVIDERS: Hospitalist; Internal Medicine Infectious Disease; Internal Medicine Pulmonary Disease; Physician Assistant
DX: A41.9 Sepsis, unspecified organism (principal); J18.9 Pneumonia, unspecified organism; K52.9 Noninfective gastroenteritis and colitis, unspecified; I10 Essential (primary) hypertension; J44.0 Chronic obstructive pulmonary disease with (acute) lower respiratory infection; F17.200 Nicotine dependence, unspecified, uncomplicated; J44.1 Chronic obstructive pulmonary disease with (acute) exacerbation; E87.6 Hypokalemia; E83.42 Hypomagnesemia; F11.20 Opioid dependence, uncomplicated; G89.4 Chronic pain syndrome; R09.02 Hypoxemia; E78.5 Hyperlipidemia, unspecified; G25.81 Restless legs syndrome; K21.9 Gastro-esophageal reflux disease without esophagitis; M79.7 Fibromyalgia; F31.9 Bipolar disorder, unspecified; K57.90 Diverticulosis of intestine, part unspecified, without perforation or abscess without bleeding; K76.0 Fatty (change of) liver, not elsewhere classified; F41.9 Anxiety disorder, unspecified; Z90.710 Acquired absence of both cervix and uterus; Z98.1 Arthrodesis status
CPT/HCPCS: 71010; 71020; 71250; 74022; 74176; 74177; 80048; 80048 91; 80053; 80202; 81003; 82248; 82272; 83605; 83690; 83735; 84702; 84999; 85025; 85027; 86021 90; 86038; 87040; 87070; 87106; 87177; 87205; 87329; 87449; 87493; 87502; 87641; 94640; 94640 76; 94667; 94668; 94760; 94799; 99202; 99281; 99285; J0456; J0500; J0692; J0696; J1650; J1956; J2270; J2405; J2543; J2765; J2930; J3370; J3475; J3480; J7030; J7040; J7050; S0028; S0030

== ENCOUNTER 2017-11-06 15:10 | Emergency (ER) | payer OTHER ==
[~2017-11-06] VITALS: Ht 160 cm; Wt 65.3 kg
[~2017-11-06 15:10] MED LIST changes: +ACIDOPHILUS LA1 EACH PO; +APRESOLINE25 MG PO; +HYOSCYAMINE0.125 M1 SL; +INCRUSE ELLI62.5 MCG IH; +METRONIDAZOLE500 MG PO; +MS CONTIN,ORAMO15 M1 PO; +NICOTINE PATCH1 EAC2 TD; +NIFEDIPINE20 MG PO; +PREDNISONE10 M1 PO; +PROTONIX40 MG PO; +SYMBICORT60 INHALA1 IH
[2017-11-06 15:42] LABS: HEMATOCRIT 37.7 % (36.0-46.0); HEMOGLOBIN 12.1 G/DL (11.9-15.5); MCH 27.4 PG (29.0-34.0); MCHC 32.1 G/DL (30.0-36.0); MCV 85.3 FL (83-99); PLATELET COUNT 204 K/uL (156-360); RBC DIS.WIDTH-SD 39.9 % (39-53); RED BLOOD COUNT 4.42 M/uL (3.80-5.20); WHITE BLOOD COUNT 6.6 K/uL (4.1-10.2)
[2017-11-06 15:55] LABS: CHLORIDE 108 mEq/L (99-109); POTASSIUM 4.1 mEq/L (3.7-5.4); SODIUM 143 mEq/L (136-147)
[2017-11-06 15:56] LABS: GLUCOSE 131 mg/dL (70-99)
[2017-11-06 16:00] LABS: GFR ESTIMATE (CALCULATED) > 59 mL/min/
[2017-11-06 16:01] LABS: UREA NITROGEN (BUN) 16 mg/dL (9-23)
[2017-11-06] MEDS ORDERED: PREDNISONE20 MG PO (18:08)
[2017-11-06] MEDS ORDERED: LIDODERM 5% P1 PATCH TD (18:08)
[2017-11-06 18:15] VITALS: BP 125/60
== END 2017-11-06 18:24 | disposition home or self-care (01) ==
LOC: EME 15:10
DX: M54.42 Lumbago with sciatica, left side (principal); G89.29 Other chronic pain; I95.9 Hypotension, unspecified; W18.2XXA Fall in (into) shower or empty bathtub, initial encounter; Y93.E1 Activity, personal bathing and showering; M79.7 Fibromyalgia; K21.9 Gastro-esophageal reflux disease without esophagitis; J44.9 Chronic obstructive pulmonary disease, unspecified; I10 Essential (primary) hypertension; E78.5 Hyperlipidemia, unspecified; F41.9 Anxiety disorder, unspecified; F32.9 Major depressive disorder, single episode, unspecified; F31.9 Bipolar disorder, unspecified; M19.90 Unspecified osteoarthritis, unspecified site; F17.200 Nicotine dependence, unspecified, uncomplicated; Z86.73 Personal history of transient ischemic attack (TIA), and cerebral infarction without residual deficits; Z90.710 Acquired absence of both cervix and uterus; Z88.6 Allergy status to analgesic agent; Z88.8 Allergy status to other drugs, medicaments and biological substances
CPT/HCPCS: 71046; 72100; 80048; 85027; 93005; 99281; 99284; J7030

== ENCOUNTER 2017-12-02 11:19 | Observation (INO) | payer OTHER ==
[~2017-12-02] VITALS: Ht 160 cm; Wt 66.9 kg
[2017-12-02 16:53] LABS: BASOPHIL (%) 0.2 % (0-1); EOSINOPHIL COUNT 0.2 K/uL (0-0.3); HEMATOCRIT 37.8 % (36.0-46.0); HEMOGLOBIN 12.1 G/DL (11.9-15.5); IMMATURE GRANULOCYTE (%) 0.3 % (0.0-0.7); LYMPHOCYTE (%) 15.7 % (15-42); LYMPHOCYTE COUNT 2.3 K/uL (1.0-2.8); MCH 27.4 PG (29.0-34.0); MCV 85.7 FL (83-99); MONOCYTE (%) 6.5 % (3-12); MONOCYTE COUNT 0.9 K/uL (0-0.8); NEUTROPHIL (%) 76.3 % (45-76); NEUTROPHIL COUNT 10.9 K/uL (1.8-6.4); PLATELET COUNT 169 K/uL (156-360); RBC DIS.WIDTH-CV 13.8 % (11.8-14.6); RBC DIS.WIDTH-SD 43.1 % (39-53); RED BLOOD COUNT 4.41 M/uL (3.80-5.20); WHITE BLOOD COUNT 14.3 K/uL (4.1-10.2)
[2017-12-02 17:03] LABS: ALBUMIN 3.7 g/dL (3.2-4.8); CHLORIDE 104 mEq/L (99-109); SODIUM 140 mEq/L (136-147)
[2017-12-02 17:06] LABS: GLUCOSE 117 mg/dL (70-99); TOTAL PROTEIN 6.5 g/dL (6.4-8.3)
[2017-12-02 17:08] LABS: TOTAL BILIRUBIN 0.5 mg/dL (0.0-1.0)
[2017-12-02 17:09] LABS: ALKALINE PHOSPHATASE 75 IU/L (3-129); CREATININE 1.5 mg/dL (0.6-1.3); GFR ESTIMATE (CALCULATED) 38 mL/min/
[2017-12-02 17:10] LABS: UREA NITROGEN (BUN) 19 mg/dL (9-23)
[2017-12-02 17:11] LABS: AST (GOT) 15 IU/L (2-34)
[2017-12-02 17:12] LABS: ALT (GPT) 10 IU/L (3-49)
[2017-12-02 18:20] LABS: CREATINE KINASE 265 IU/L (1-294); DIRECT BILIRUBIN 0.2 mg/dL (0.0-0.3); TOTAL CK 265 IU/L (1-294)
[2017-12-02 18:26] LABS: CK-MB 2.3 ng/mL (0.0-4.9); CKMB RELATIVE INDEX 0.9 (0.0-3.9)
[2017-12-02 18:30] LABS: BASE EXCESS 2.4 mEq/L (-3 to +3); BICARBONATE 28.3 mEq/L (22-26); CARBOXY HGB 2.7 % (0-5); PCO2 49 mm Hg (35-45); PO2 65 mm Hg (80-100); pH 7.37 (7.35-7.45)
[2017-12-02 18:31] LABS: TROP-I INTERPRETATION NEGATIVE; TROPONIN-I < 0.01 ng/mL (0.0-0.30)
[2017-12-02 18:31] LABS: COMMENTS - BLOOD GASES C+; DEVICE NC; O2 FLOW 2 L/MIN; SITE LR
[2017-12-02 18:50] LABS: ERTH.SED.RATE 37 MM/HR (0-30)
[2017-12-02 19:08] LABS: ABS NEUTROPHIL COUNT 11.3; ANISOCYTOSIS 1+; BAND NEUTROPHILS 4.4 % (0-8.0); EOSINOPHIL ABS CT 0; LYMPHOCYTES 19.1 % (15.0-45.0); MICROCYTOSIS 1+; MONOCYTES 1.7 % (0-9.0); SEG.NEUTROPHILS 74.8 % (46.0-76.0)
[2017-12-02 20:15] LABS: APPEARANCE SL.HAZY ((CLEAR)); BILIRUBIN NEGATIVE; BLOOD NEGATIVE; COLOR YELLOW ((YELLOW)); GLUCOSE (STRIP) NEGATIVE; KETONES NEGATIVE; LEUKOCYTES NEGATIVE; NITRITE NEGATIVE; PROTEIN (STRIP) NEGATIVE; SPECIFIC GRAVITY 1.018 (1.000-1.030); UROBILINOGEN 0.2 MG/DL (0.2-1.0)
[2017-12-02 20:36] LABS: COCAINE NEGATIVE (150 ng/mL); METHAMPHETAMINE NEGATIVE (500 ng/mL); PHENCYCLIDINE NEGATIVE (25 ng/mL); THC CANNABINOIDS NEGATIVE (50 ng/mL)
[2017-12-02 20:37] LABS: AMPHETAMINE NEGATIVE (500 ng/mL); BARBITURATES NEGATIVE (200 ng/mL); BENZODIAZEPINES PRESUMPTIVE POSITIVE (150 ng/mL); BUPRENORPHINE NEGATIVE (10 ng/mL); METHADONE NEGATIVE (200 ng/mL); OPIATES (MORPHINE) PRESUMPTIVE POSITIVE (100 ng/mL); OXYCODONE PRESUMPTIVE POSITIVE (100 ng/mL); PROPOXYPHENE NEGATIVE (300 ng/mL); TRICYCLIC ANTIDEPRESSANTS PRESUMPTIVE POSITIVE (300 ng/mL)
[2017-12-02 20:48] LABS: BACTERIA 1+ /HPF; EPITHELIAL CELLS 2+ /HPF; MUCUS TRACE /LPF; RED BLOOD CELLS 0-5 /HPF (0-5); UCUL ADDED? NO; WHITE BLOOD CELLS 0-5 /HPF (0-5)
[2017-12-02 21:00] LABS: BENZODIAZEPINES, URINE SCREEN POSITIVE (200 ng/mL)
[2017-12-02 21:05] VITALS: BP 115/55
[2017-12-02 23:53] VITALS: BP 136/61
[2017-12-03 04:07] VITALS: BP 136/83
[2017-12-03 06:02] LABS: HEMATOCRIT 34.5 % (36.0-46.0); HEMOGLOBIN 10.7 G/DL (11.9-15.5); MCH 27.1 PG (29.0-34.0); MCV 87.3 FL (83-99); PLATELET COUNT 153 K/uL (156-360); RBC DIS.WIDTH-CV 13.7 % (11.8-14.6); RED BLOOD COUNT 3.95 M/uL (3.80-5.20); WHITE BLOOD COUNT 11.5 K/uL (4.1-10.2)
[2017-12-03 06:27] LABS: CHLORIDE 108 MEQ/L (99-109); GLUCOSE 108 mg/dL (70-99); SODIUM 141 MEQ/L (136-147); UREA NITROGEN (BUN) 17 mg/dL (9-23)
[2017-12-03 06:28] LABS: CREATININE 0.9 MG/DL (0.6-1.3); GFR ESTIMATE (CALCULATED) > 59 mL/min/
[2017-12-03 07:41] VITALS: BP 151/67
[2017-12-03 11:51] VITALS: BP 141/71
[2017-12-03 14:51] VITALS: BP 168/98
[2017-12-03 19:45] VITALS: BP 186/90
[2017-12-03] MEDS ORDERED: ZOLPIDEM TARTRA10 MG PO (21:43)
[2017-12-04] VITALS (7 sets, daily range): BP systolic 158–203; BP diastolic 80–93
[2017-12-04] MEDS ORDERED: OXYCODONE HCL5 MG PO (13:31)
[2017-12-04] MEDS ORDERED: CEFTIN500 MG PO (13:31)
[2017-12-04] MEDS ORDERED: MS CONTIN,ORAMO15 M1 PO (13:31)
== END 2017-12-04 15:50 | disposition home or self-care (01) ==
LOC: EME 11:19 → EDOF 17:48 → 5WEST 17:48 → ENRESERV 17:51 → 5WEST 20:44
PROVIDERS: Emergency Medicine; Hospitalist
DX: T40.601A Poisoning by unspecified narcotics, accidental (unintentional), initial encounter (principal); J18.9 Pneumonia, unspecified organism; J44.0 Chronic obstructive pulmonary disease with (acute) lower respiratory infection; R09.02 Hypoxemia; G89.29 Other chronic pain; M54.9 Dorsalgia, unspecified; R00.0 Tachycardia, unspecified; I10 Essential (primary) hypertension; F32.9 Major depressive disorder, single episode, unspecified; F41.9 Anxiety disorder, unspecified; M79.7 Fibromyalgia; D64.9 Anemia, unspecified; Z87.19 Personal history of other diseases of the digestive system; G25.81 Restless legs syndrome; K21.9 Gastro-esophageal reflux disease without esophagitis; E78.5 Hyperlipidemia, unspecified; G43.909 Migraine, unspecified, not intractable, without status migrainosus; Z88.6 Allergy status to analgesic agent; Z88.8 Allergy status to other drugs, medicaments and biological substances; F17.210 Nicotine dependence, cigarettes, uncomplicated; Z90.710 Acquired absence of both cervix and uterus; Z98.1 Arthrodesis status
CPT/HCPCS: 36600; 70450; 71045; 80048; 80053; 80076; 80306 90; 81003; 82248; 82550; 82550 91; 82553; 82803; 83605; 84484; 84999; 85007; 85025; 85025 91; 85027; 85379; 85652; 87040; 93005; 94640; 94640 76; 94799; 99202; 99281; 99285; G0378; J0696; J1650; J1885; J2310; J2405; J2543; J2765; J3370; J7040; J7050; J7120

== ENCOUNTER 2017-12-19 19:53 | Emergency (ER) | payer OTHER ==
[~2017-12-19] VITALS: Ht 160 cm; Wt 69.9 kg
[~2017-12-19 19:53] MED LIST changes: +CEFTIN500 MG PO
[2017-12-19 22:09] LABS: HEMATOCRIT 35.7 % (36.0-46.0); HEMOGLOBIN 11.6 G/DL (11.9-15.5); MCH 27.9 PG (29.0-34.0); MCHC 32.5 G/DL (30.0-36.0); MCV 85.8 FL (83-99); RBC DIS.WIDTH-CV 14.5 % (11.8-14.6); RBC DIS.WIDTH-SD 44.8 % (39-53); RED BLOOD COUNT 4.16 M/uL (3.80-5.20); WHITE BLOOD COUNT 7.2 K/uL (4.1-10.2)
[2017-12-19 22:11] LABS: PLATELET COUNT 248 K/uL (156-360)
[2017-12-19 22:21] LABS: ALBUMIN 4.1 g/dL (3.2-4.8); CHLORIDE 107 mEq/L (99-109); POTASSIUM 4.8 mEq/L (3.7-5.4); SODIUM 142 mEq/L (136-147)
[2017-12-19 22:23] LABS: GLUCOSE 96 mg/dL (70-99); TOTAL PROTEIN 7.1 g/dL (6.4-8.3)
[2017-12-19 22:25] LABS: TOTAL BILIRUBIN 0.2 mg/dL (0.0-1.0)
[2017-12-19 22:27] LABS: ALKALINE PHOSPHATASE 72 IU/L (3-129); CREATININE 0.9 mg/dL (0.6-1.3); GFR ESTIMATE (CALCULATED) > 59 mL/min/
[2017-12-19 22:28] LABS: UREA NITROGEN (BUN) 10 mg/dL (9-23)
[2017-12-19 22:29] LABS: AST (GOT) 13 IU/L (2-34)
[2017-12-19 22:30] LABS: ALT (GPT) 12 IU/L (3-49)
[2017-12-19 23:17] VITALS: BP 195/109
== END 2017-12-19 23:18 | disposition home or self-care (01) ==
LOC: EME 19:53
PROVIDERS: Nurse Practitioner Family
DX: I10 Essential (primary) hypertension (principal); G43.909 Migraine, unspecified, not intractable, without status migrainosus; D64.9 Anemia, unspecified; J44.9 Chronic obstructive pulmonary disease, unspecified; K21.9 Gastro-esophageal reflux disease without esophagitis; M79.7 Fibromyalgia; E78.5 Hyperlipidemia, unspecified; R56.9 Unspecified convulsions; F41.9 Anxiety disorder, unspecified; F32.9 Major depressive disorder, single episode, unspecified; F31.9 Bipolar disorder, unspecified; F17.200 Nicotine dependence, unspecified, uncomplicated; Z86.73 Personal history of transient ischemic attack (TIA), and cerebral infarction without residual deficits; Z90.710 Acquired absence of both cervix and uterus; Z88.6 Allergy status to analgesic agent; Z88.8 Allergy status to other drugs, medicaments and biological substances
CPT/HCPCS: 80053; 85027; 93005; 99281; 99284

== ENCOUNTER 2017-12-24 00:02 | Inpatient (IN) | payer OTHER ==
[~2017-12-24] VITALS: Ht 160 cm; Wt 70.8 kg
[2017-12-24 00:37] LABS: HEMATOCRIT 34.9 % (36.0-46.0); HEMOGLOBIN 11.2 G/DL (11.9-15.5); MCH 28.1 PG (29.0-34.0); MCHC 32.1 G/DL (30.0-36.0); MCV 87.5 FL (83-99); PLATELET COUNT 254 K/uL (156-360); RBC DIS.WIDTH-CV 14.5 % (11.8-14.6); RBC DIS.WIDTH-SD 46.4 % (39-53); RED BLOOD COUNT 3.99 M/uL (3.80-5.20); WHITE BLOOD COUNT 16.3 K/uL (4.1-10.2)
[2017-12-24 00:46] LABS: ALBUMIN 4.1 g/dL (3.2-4.8); CHLORIDE 108 mEq/L (99-109)
[2017-12-24 00:47] LABS: POTASSIUM 4.1 mEq/L (3.7-5.4); SODIUM 141 mEq/L (136-147)
[2017-12-24 00:49] LABS: GLUCOSE 143 mg/dL (70-99); TOTAL PROTEIN 7.1 g/dL (6.4-8.3)
[2017-12-24 00:52] LABS: ALKALINE PHOSPHATASE 73 IU/L (3-129); CREATININE 1.1 mg/dL (0.6-1.3); GFR ESTIMATE (CALCULATED) 55 mL/min/; TOTAL BILIRUBIN 0.3 mg/dL (0.0-1.0)
[2017-12-24 00:54] LABS: AST (GOT) 16 IU/L (2-34); UREA NITROGEN (BUN) 16 mg/dL (9-23)
[2017-12-24 00:55] LABS: ALT (GPT) 11 IU/L (3-49)
[2017-12-24 01:01] LABS: QUANTITATIVE HCG < 4.0 MIU/ML
[2017-12-24 01:21] LABS: SERUM ETHYL ALCOHOL < 10 mg/dL
[2017-12-24 01:25] LABS: ACETAMINOPHEN (TYLENOL) < 10 mcg/mL (10-30); LIPASE 5 U/L (1.0-51.0); SALICYLATE < 5.0 MG/DL (15-30)
[2017-12-24 01:28] LABS: TROP-I INTERPRETATION NEGATIVE; TROPONIN-I 0.02 ng/mL (0.0-0.30)
[2017-12-24 04:09] LABS: APPEARANCE CLEAR ((CLEAR)); BILIRUBIN NEGATIVE; BLOOD NEGATIVE; COLOR YELLOW ((YELLOW)); GLUCOSE (STRIP) NEGATIVE; KETONES NEGATIVE; LEUKOCYTES NEGATIVE; NITRITE NEGATIVE; PROTEIN (STRIP) NEGATIVE; SPECIFIC GRAVITY 1.009 (1.000-1.030); UCUL ADDED? NO; UROBILINOGEN 0.2 MG/DL (0.2-1.0)
[2017-12-24 04:16] LABS: AMPHETAMINE NEGATIVE (500 ng/mL); BENZODIAZEPINES PRESUMPTIVE POSITIVE (150 ng/mL); COCAINE NEGATIVE (150 ng/mL); METHADONE NEGATIVE (200 ng/mL); METHAMPHETAMINE NEGATIVE (500 ng/mL); OPIATES (MORPHINE) PRESUMPTIVE POSITIVE (100 ng/mL); PHENCYCLIDINE NEGATIVE (25 ng/mL); THC CANNABINOIDS NEGATIVE (50 ng/mL); TRICYCLIC ANTIDEPRESSANTS NEGATIVE (300 ng/mL)
[2017-12-24 04:17] LABS: BARBITURATES NEGATIVE (200 ng/mL); BUPRENORPHINE NEGATIVE (10 ng/mL); OXYCODONE PRESUMPTIVE POSITIVE (100 ng/mL); PROPOXYPHENE NEGATIVE (300 ng/mL)
[2017-12-24 05:45] LABS: BENZODIAZEPINES, URINE SCREEN POSITIVE (200 ng/mL)
[2017-12-24 09:05] LABS: BASOPHIL (%) 0.4 % (0-1); BASOPHIL COUNT 0.1 K/uL (0-0.1); EOSINOPHIL (%) 0.9 % (0-5); EOSINOPHIL COUNT 0.1 K/uL (0-0.3); HEMOGLOBIN 10.7 G/DL (11.9-15.5); IMMATURE GRANULOCYTE (%) 0.4 % (0.0-0.7); LYMPHOCYTE (%) 23.1 % (15-42); LYMPHOCYTE COUNT 2.9 K/uL (1.0-2.8); MCH 27.9 PG (29.0-34.0); MCHC 31.5 G/DL (30.0-36.0); MCV 88.8 FL (83-99); MONOCYTE (%) 6.7 % (3-12); MONOCYTE COUNT 0.8 K/uL (0-0.8); NEUTROPHIL (%) 68.5 % (45-76); NEUTROPHIL COUNT 8.6 K/uL (1.8-6.4); PLATELET COUNT 190 K/uL (156-360); RBC DIS.WIDTH-CV 14.7 % (11.8-14.6); RBC DIS.WIDTH-SD 47.8 % (39-53); RED BLOOD COUNT 3.83 M/uL (3.80-5.20); WHITE BLOOD COUNT 12.5 K/uL (4.1-10.2)
[2017-12-24 09:18] LABS: CHLORIDE 111 mEq/L (99-109); MAGNESIUM 2.1 mg/dL (1.3-2.7); SODIUM 143 mEq/L (136-147)
[2017-12-24 09:23] LABS: CREATININE 0.8 mg/dL (0.6-1.3); GFR ESTIMATE (CALCULATED) > 59 mL/min/
[2017-12-24 09:24] LABS: UREA NITROGEN (BUN) 12 mg/dL (9-23)
[2017-12-24 09:25] LABS: GLUCOSE 99 mg/dL (70-99)
[2017-12-24] MEDS ORDERED: APRESOLINE25 MG PO (09:49)
[2017-12-24] MEDS ORDERED: ZESTRIL40 MG PO (09:51)
[2017-12-24] MEDS ORDERED: MS CONTIN,ORAMO15 M1 PO (09:52)
[2017-12-24] MEDS ORDERED: OXYCODONE HCL10 MG PO (09:53)
[2017-12-24] MEDS ORDERED: NEURONTIN400 MG PO (09:54)
[2017-12-24] MEDS ORDERED: TRAZODONE HCL50 MG PO ×2 (09:55→09:56)
[2017-12-24] MEDS ORDERED: AMBIEN10 MG PO (09:57)
[2017-12-24] MEDS ORDERED: IMITREX25 MG PO (10:00)
[2017-12-24] MEDS ORDERED: ADDERALL XR 2020 MG PO (10:03)
[2017-12-24] MEDS ORDERED: PRILOSEC20 MG PO (10:04)
[2017-12-24] MEDS ORDERED: XANAX0.5 MG PO (10:04)
[2017-12-24] MEDS ORDERED: ZANAFLEX4 MG PO (10:06)
[2017-12-24] MEDS ORDERED: CATAPRES0.2 MG PO (10:06)
[2017-12-24] MEDS ORDERED: SYMBICORT60 INHALAT IH (10:21)
[2017-12-24 10:23] VITALS: BP 117/73
== END 2017-12-24 10:32 | disposition left against medical advice (07) | DRG 918 ==
LOC: EME 00:02 → EDOF 05:04 → ENRESERV 05:10 → EDOF 10:32
PROVIDERS: Emergency Medicine; Physician Assistant
DX: T40.2X1A Poisoning by other opioids, accidental (unintentional), initial encounter (principal); T42.4X1A Poisoning by benzodiazepines, accidental (unintentional), initial encounter; R65.10 Systemic inflammatory response syndrome (SIRS) of non-infectious origin without acute organ dysfunction; M79.7 Fibromyalgia; I10 Essential (primary) hypertension; E78.5 Hyperlipidemia, unspecified; G25.81 Restless legs syndrome; J44.9 Chronic obstructive pulmonary disease, unspecified; K21.9 Gastro-esophageal reflux disease without esophagitis; F17.200 Nicotine dependence, unspecified, uncomplicated; G89.29 Other chronic pain; Z98.1 Arthrodesis status; Z90.710 Acquired absence of both cervix and uterus; F19.120 Other psychoactive substance abuse with intoxication, uncomplicated; F11.120 Opioid abuse with intoxication, uncomplicated; F13.120 Sedative, hypnotic or anxiolytic abuse with intoxication, uncomplicated
CPT/HCPCS: 70450; 71045; 72131; 80048 91; 80053; 81003; 83605; 83690; 83735; 84484; 84702; 84999; 85025; 85027; 87040; 87502; 93005; 99281; 99285; G0480; J0696; J2060; J2310; J7120

== ENCOUNTER 2017-12-29 14:41 | Emergency (ER) | payer OTHER ==
[~2017-12-29 14:41] MED LIST changes: +ADDERALL XR 2020 MG PO; +CATAPRES0.2 MG PO; +IMITREX25 MG PO; +NEURONTIN400 MG PO; +PRILOSEC20 MG PO; +SYMBICORT60 INHALAT IH; +ZANAFLEX4 MG PO; +ZESTRIL40 MG PO
== END 2017-12-29 15:03 | disposition left against medical advice (07) ==
LOC: EME 14:41
DX: R41.82 Altered mental status, unspecified (principal); Z53.21 Procedure and treatment not carried out due to patient leaving prior to being seen by health care provider

== ENCOUNTER 2018-02-22 16:41 | Emergency (ER) | payer OTHER ==
[~2018-02-22] VITALS: Ht 160 cm; Wt 143.0 kg
[2018-02-22 17:16] LABS: APPEARANCE CLEAR ((CLEAR)); BILIRUBIN NEGATIVE; BLOOD NEGATIVE; COLOR YELLOW ((YELLOW)); GLUCOSE (STRIP) NEGATIVE; KETONES NEGATIVE; LEUKOCYTES TRACE; NITRITE NEGATIVE; PROTEIN (STRIP) 30; SPECIFIC GRAVITY 1.024 (1.000-1.030); UROBILINOGEN 0.2 MG/DL (0.2-1.0)
[2018-02-22 17:24] LABS: BASOPHIL (%) 0.7 % (0-1); BASOPHIL COUNT 0.1 K/uL (0-0.1); EOSINOPHIL COUNT 0.4 K/uL (0-0.3); HEMATOCRIT 38.4 % (36.0-46.0); HEMOGLOBIN 12.6 G/DL (11.9-15.5); IMMATURE GRANULOCYTE (%) 0.2 % (0.0-0.7); LYMPHOCYTE (%) 28.5 % (15-42); LYMPHOCYTE COUNT 2.5 K/uL (1.0-2.8); MCH 28.3 PG (29.0-34.0); MCHC 32.8 G/DL (30.0-36.0); MCV 86.1 FL (83-99); MONOCYTE (%) 7.4 % (3-12); MONOCYTE COUNT 0.7 K/uL (0-0.8); NEUTROPHIL (%) 59.2 % (45-76); NEUTROPHIL COUNT 5.2 K/uL (1.8-6.4); PLATELET COUNT 149 K/uL (156-360); RBC DIS.WIDTH-CV 13.2 % (11.8-14.6); RBC DIS.WIDTH-SD 40.8 % (39-53); RED BLOOD COUNT 4.46 M/uL (3.80-5.20); WHITE BLOOD COUNT 8.8 K/uL (4.1-10.2)
[2018-02-22 17:26] LABS: BACTERIA RARE /HPF; CALCIUM OXALATE CRYSTALS 2+ /HPF; EPITHELIAL CELLS 1+ /HPF; HYALINE CASTS 0-5 /LPF; MUCUS TRACE /LPF; UCUL ADDED? NO; WHITE BLOOD CELLS 0-5 /HPF (0-5)
[2018-02-22 17:33] LABS: ALBUMIN 4.1 g/dL (3.2-4.8); CHLORIDE 108 mEq/L (99-109); POTASSIUM 3.6 mEq/L (3.7-5.4); SODIUM 146 mEq/L (136-147)
[2018-02-22 17:35] LABS: GLUCOSE 81 mg/dL (70-99); TOTAL PROTEIN 7.1 g/dL (6.4-8.3)
[2018-02-22 17:37] LABS: TOTAL BILIRUBIN 0.3 mg/dL (0.0-1.0)
[2018-02-22 17:38] LABS: SERUM ETHYL ALCOHOL < 10 mg/dL
[2018-02-22 17:39] LABS: CREATININE 0.8 mg/dL (0.6-1.3); GFR ESTIMATE (CALCULATED) > 59 mL/min/
[2018-02-22 17:40] LABS: AMPHETAMINE PRESUMPTIVE POSITIVE (500 ng/mL); BARBITURATES NEGATIVE (200 ng/mL); BENZODIAZEPINES PRESUMPTIVE POSITIVE (150 ng/mL); BUPRENORPHINE NEGATIVE (10 ng/mL); COCAINE NEGATIVE (150 ng/mL); METHADONE NEGATIVE (200 ng/mL); METHAMPHETAMINE NEGATIVE (500 ng/mL); OPIATES (MORPHINE) PRESUMPTIVE POSITIVE (100 ng/mL); OXYCODONE PRESUMPTIVE POSITIVE (100 ng/mL); PHENCYCLIDINE NEGATIVE (25 ng/mL); PROPOXYPHENE NEGATIVE (300 ng/mL); THC CANNABINOIDS NEGATIVE (50 ng/mL); TRICYCLIC ANTIDEPRESSANTS NEGATIVE (300 ng/mL)
[2018-02-22 17:40] LABS: ALKALINE PHOSPHATASE 81 IU/L (3-129); AST (GOT) 30 IU/L (2-34)
[2018-02-22 17:41] LABS: UREA NITROGEN (BUN) 10 mg/dL (9-23)
[2018-02-22 17:42] LABS: SALICYLATE < 5.0 MG/DL (15-30)
[2018-02-22 17:43] LABS: ACETAMINOPHEN (TYLENOL) < 10 mcg/mL (10-30); ALT (GPT) 13 IU/L (3-49)
[2018-02-22 18:11] VITALS: BP 183/82
[2018-02-22 18:19] LABS: BENZODIAZEPINES, URINE SCREEN POSITIVE (200 ng/mL)
== END 2018-02-22 18:12 | disposition home or self-care (01) ==
LOC: EME 16:41
PROVIDERS: Emergency Medicine
DX: F11.20 Opioid dependence, uncomplicated (principal); F32.9 Major depressive disorder, single episode, unspecified; F41.9 Anxiety disorder, unspecified; Z04.6 Encounter for general psychiatric examination, requested by authority; G89.29 Other chronic pain; J44.9 Chronic obstructive pulmonary disease, unspecified; I10 Essential (primary) hypertension; M79.7 Fibromyalgia; E78.5 Hyperlipidemia, unspecified; K21.9 Gastro-esophageal reflux disease without esophagitis; F17.200 Nicotine dependence, unspecified, uncomplicated; Z86.73 Personal history of transient ischemic attack (TIA), and cerebral infarction without residual deficits; Z88.6 Allergy status to analgesic agent
CPT/HCPCS: 80053; 81003; 84999; 85025; 90837; 99281; 99284; G0480

== ENCOUNTER 2018-04-02 12:18 | Inpatient (IN) | payer OTHER ==
[~2018-04-02] VITALS: Ht 160 cm; Wt 61.1 kg
[~2018-04-02 12:18] MED LIST changes: +XTAMPZA ER13.5 MG PO
[2018-04-04] MEDS ORDERED: OXYCODONE HCL5 MG PO (16:12)
[2018-04-04] MEDS ORDERED: DIAZEPAM2 MG PO (16:12)
[2018-04-04] MEDS ORDERED: LABETALOL HCL100 MG PO (16:12)
[2018-04-04] MEDS ORDERED: ZOLPIDEM TARTRAT5 MG PO (16:12)
[2018-04-04] MEDS ORDERED: LEVETIRACETAM500 MG PO (16:12)
[2018-04-04] MEDS ORDERED: LISINOPRIL40 MG PO (16:12)
[2018-04-04] MEDS ORDERED: DOCUSATE SODIU100 MG PO (16:12)
[2018-04-04] MEDS ORDERED: HYDRALAZINE HCL25 MG PO (16:13)
[2018-04-04 17:27] VITALS: BP 137/67
[2018-04-04] MEDS ORDERED: EFFEXOR XR75 MG PO (22:52)
[2018-04-04] MEDS ORDERED: EFFEXOR XR37.5 MG PO (22:52)
[2018-04-05] VITALS (7 sets, daily range): BP systolic 90–202; BP diastolic 50–91
[2018-04-06 07:49] VITALS: BP 160/78
[2018-04-06 13:41] VITALS: BP 95/47
[2018-04-06 15:42] VITALS: BP 128/64
[2018-04-07 07:34] VITALS: BP 112/67
[2018-04-07] MEDS ORDERED: VENLAFAXINE HC150 M1 PO (09:21)
[2018-04-07] MEDS ORDERED: APRESOLINE50 MG PO (09:21)
[2018-04-07] MEDS ORDERED: LABETALOL HCL100 MG PO (09:21)
== END 2018-04-07 13:33 | disposition home or self-care (01) | DRG 881 ==
LOC: 1WEST 12:18 → CANRESERV 04-04 15:01 → ENRESERV 04-04 15:01 → 1WEST 04-04 16:42
DX: F32.9 Major depressive disorder, single episode, unspecified (principal); F11.10 Opioid abuse, uncomplicated; I10 Essential (primary) hypertension; M79.7 Fibromyalgia

== ENCOUNTER 2018-04-19 21:50 | Observation (INO) | payer OTHER ==
[~2018-04-19] VITALS: Ht 162.6 cm; Wt 65.0 kg
[~2018-04-19 21:50] MED LIST changes: +APRESOLINE50 MG PO; +DOCUSATE SODIU100 MG PO; +EFFEXOR XR37.5 MG PO; +EFFEXOR XR75 MG PO; +HYDRALAZINE HCL25 MG PO; +LABETALOL HCL100 MG PO; +LEVETIRACETAM500 MG PO; +VENLAFAXINE HC150 M1 PO; +ZOLPIDEM TARTRAT5 MG PO
[2018-04-19 22:14] LABS: HEMATOCRIT 38.6 % (36.0-46.0); HEMOGLOBIN 12.8 G/DL (11.9-15.5); MCH 27.7 PG (29.0-34.0); MCHC 33.2 G/DL (30.0-36.0); MCV 83.5 FL (83-99); RBC DIS.WIDTH-CV 13.8 % (11.8-14.6); RBC DIS.WIDTH-SD 42.1 % (39-53); RED BLOOD COUNT 4.62 M/uL (3.80-5.20); WHITE BLOOD COUNT 7.5 K/uL (4.1-10.2)
[2018-04-19 22:19] LABS: ALBUMIN 4.1 g/dL (3.2-4.8)
[2018-04-19 22:20] LABS: CHLORIDE 108 mEq/L (99-109); POTASSIUM 3.9 mEq/L (3.7-5.4); SODIUM 143 mEq/L (136-147)
[2018-04-19 22:22] LABS: GLUCOSE 153 mg/dL (70-99); INTER. NORMALIZED RATIO 1.1; TOTAL PROTEIN 6.4 g/dL (6.4-8.3)
[2018-04-19 22:24] LABS: TOTAL BILIRUBIN 0.2 mg/dL (0.0-1.0)
[2018-04-19 22:25] LABS: ALKALINE PHOSPHATASE 69 IU/L (3-129); PTT 24.7 SEC (25-37)
[2018-04-19 22:26] LABS: CREATININE 1.1 mg/dL (0.6-1.3); GFR ESTIMATE (CALCULATED) 55 mL/min/
[2018-04-19 22:27] LABS: AST (GOT) 13 IU/L (2-34); UREA NITROGEN (BUN) 21 mg/dL (9-23)
[2018-04-19 22:29] LABS: ALT (GPT) 18 IU/L (3-49); LIPASE 53 U/L (1.0-51.0)
[2018-04-19 22:31] LABS: TROP-I INTERPRETATION NEGATIVE; TROPONIN-I 0.02 ng/mL (0.0-0.30)
[2018-04-19 22:54] LABS: PLAT.SUFFICIENCY ADEQUATE; PLATELET COUNT 167 K/uL (156-360)
[2018-04-20] MEDS ORDERED: LISINOPRIL20 MG PO (00:15)
[2018-04-20] MEDS ORDERED: NASACORT10.8 ML BOTH NARES (00:18)
[2018-04-20 00:35] LABS: AMPHETAMINE NEGATIVE (500 ng/mL); BARBITURATES NEGATIVE (200 ng/mL); BENZODIAZEPINES PRESUMPTIVE POSITIVE (150 ng/mL); BUPRENORPHINE NEGATIVE (10 ng/mL); COCAINE NEGATIVE (150 ng/mL); METHADONE NEGATIVE (200 ng/mL); OPIATES (MORPHINE) NEGATIVE (100 ng/mL); OXYCODONE NEGATIVE (100 ng/mL); PHENCYCLIDINE PRESUMPTIVE POSITIVE (25 ng/mL); PROPOXYPHENE NEGATIVE (300 ng/mL); THC CANNABINOIDS NEGATIVE (50 ng/mL); TRICYCLIC ANTIDEPRESSANTS PRESUMPTIVE POSITIVE (300 ng/mL)
[2018-04-20] MEDS ORDERED: CLONIDINE1 EACH TD (00:37)
[2018-04-20] MEDS ORDERED: XTAMPZA ER13.5 MG PO (00:38)
[2018-04-20] MEDS ORDERED: FERROUS SULFAT325 MG PO (00:38)
[2018-04-20] MEDS ORDERED: TIZANIDINE HCL4 MG PO (00:39)
[2018-04-20] MEDS ORDERED: OMEPRAZOLE20 M2 PO (00:39)
[2018-04-20] MEDS ORDERED: MORPHINE SULFAT15 M1 PO (00:41)
[2018-04-20] MEDS ORDERED: OXYCODONE HCL10 MG PO (00:46)
[2018-04-20 01:58] LABS: BENZODIAZEPINES, URINE SCREEN POSITIVE (200 ng/mL)
[2018-04-20 02:05] LABS: METHAMPHETAMINE NEGATIVE (500 ng/mL)
[2018-04-20 02:19] VITALS: BP 125/60
[2018-04-20 05:59] LABS: TROP-I INTERPRETATION NEGATIVE; TROPONIN-I 0.13 ng/mL (0.0-0.30)
[2018-04-20 07:32] VITALS: BP 129/61
[2018-04-20 08:16] LABS: THYROTROPIN (TSH) 4.8 MIU/L (0.4-5.5)
[2018-04-20 08:20] LABS: CHLORIDE 109 MEQ/L (99-109); CREATININE 0.8 MG/DL (0.6-1.3); GFR ESTIMATE (CALCULATED) > 59 mL/min/; GLUCOSE 94 mg/dL (70-99); POTASSIUM 4.5 MEQ/L (3.7-5.4); SODIUM 140 MEQ/L (136-147); UREA NITROGEN (BUN) 18 mg/dL (9-23)
[2018-04-20 11:10] LABS: HEMATOCRIT 37.5 % (36.0-46.0); HEMOGLOBIN 11.9 G/DL (11.9-15.5); MCH 27.2 PG (29.0-34.0); MCHC 31.7 G/DL (30.0-36.0); MCV 85.8 FL (83-99); PLATELET COUNT 158 K/uL (156-360); RBC DIS.WIDTH-SD 43.9 % (39-53); RED BLOOD COUNT 4.37 M/uL (3.80-5.20); WHITE BLOOD COUNT 6.4 K/uL (4.1-10.2)
[2018-04-20 11:29] LABS: TROP-I INTERPRETATION NEGATIVE; TROPONIN-I 0.06 ng/mL (0.0-0.30)
[2018-04-20 11:30] VITALS: BP 131/49
[2018-04-20 15:44] VITALS: BP 136/63
== END 2018-04-20 16:05 | disposition home or self-care (01) ==
LOC: EME → EDBD 21:50 → EDOF 04-20 01:05 → 4SOUTH 04-20 01:05 → EDOF 04-20 01:05 → ENRESERV 04-20 01:07 → 4SOUTH 04-20 02:03
PROVIDERS: Emergency Medicine; Internal Medicine; Physician Assistant
DX: R07.9 Chest pain, unspecified (principal); R00.0 Tachycardia, unspecified; I48.92 Unspecified atrial flutter; Z91.14 Patient's other noncompliance with medication regimen; Z91.19 Patient's noncompliance with other medical treatment and regimen; I95.9 Hypotension, unspecified; I10 Essential (primary) hypertension; R94.31 Abnormal electrocardiogram [ECG] [EKG]; Z86.73 Personal history of transient ischemic attack (TIA), and cerebral infarction without residual deficits; I67.83 Posterior reversible encephalopathy syndrome; G40.909 Epilepsy, unspecified, not intractable, without status epilepticus; J44.9 Chronic obstructive pulmonary disease, unspecified; G25.81 Restless legs syndrome; E78.5 Hyperlipidemia, unspecified; M79.7 Fibromyalgia; G43.909 Migraine, unspecified, not intractable, without status migrainosus; Z98.1 Arthrodesis status; K21.9 Gastro-esophageal reflux disease without esophagitis; F32.9 Major depressive disorder, single episode, unspecified; G47.33 Obstructive sleep apnea (adult) (pediatric); F17.210 Nicotine dependence, cigarettes, uncomplicated; Z88.6 Allergy status to analgesic agent; Z90.710 Acquired absence of both cervix and uterus; Z88.8 Allergy status to other drugs, medicaments and biological substances
CPT/HCPCS: 71045; 71275; 80048; 80053; 83690; 84443; 84484; 84999; 85027; 85610; 85730; 86850; 86900; 86901; 93005; 99281; 99285; G0378; J1644